=== PATIENT | female | born 2000 | race Caucasian/White ===

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

== ENCOUNTER 2018-01-31 13:20 | Emergency (ER) | payer BC ==
[2018-01-31 13:30] VITALS: BP 117/69
--- NOTE | 2018-01-31 14:05 | RAD ---
INDICATION: Right third digit injury COMPARISON: None TECHNIQUE: AP, lateral, and oblique views were obtained. FINDINGS: The bony structures, joint spaces, and soft tissues are normal for age. IMPRESSION: NEGATIVE EXAMINATION.
--- NOTE | 2018-02-04 07:16 | UC ---
Rodriguez Valdovinos Nikita, scribed for John Hagen MD on 01/31/18 at 1337 . Upper Extremity HPI - HPI Summary HPI Summary: This patient is a 17 year old F presenting to [facility] with a chief complaint of R middle finger pain since earlier this morning s/p closing a car door on her finger. The CC is described as throbbing. The patient rates the pain 4/10 in severity. Symptoms aggravated by nothing. Symptoms alleviated by nothing. - History of Current Complaint Chief Complaint: UCUpperExtremity Stated Complaint: FINGER INJURY Time Seen by Provider: 01/31/18 13:30 Hx Obtained From: Patient Hx Last Menstrual Period: 01/17/18 Onset/Duration: Sudden Onset, Lasting Hours, Still Present Severity Initially: Mild Severity Currently: Mild Pain Intensity: 4 Pain Scale Used: 0-10 Numeric Location Of Pain: Is Discrete @ - R middle finger Character: Throbbing Aggravating Factor(s): Nothing Alleviating Factor(s): Nothing - Allergies/Home Medications Allergies/Adverse Reactions: Allergies Allergy/AdvReac Type Severity Reaction Status Date / Time No Known Allergies Allergy Verified 01/31/18 13:26 PMH/Surg Hx/FS Hx/Imm Hx Endocrine History: Other Other Endocrine History: No DM Cardiovascular History: Other Other Cardiovascular History: heart murmur; No HTN Other History Of: Negative For: HIV, Hepatitis B, Hepatitis C - Surgical History Surgical History: None - Family History Known Family History: Positive: Cardiac Disease Negative: Hypertension - Social History Alcohol Use: None Substance Use Type: None Smoking Status (MU): Never Smoked Tobacco Have You Smoked in the Last Year: No - Immunization History Vaccination Up to Date: Yes Review of Systems Constitutional: Other - denies fever Musculoskeletal: Other: - R middle finger pain All Other Systems Reviewed And Are Negative: Yes Physical Exam - Summary Physical Exam Summary: VITAL SIGNS: Reviewed. GENERAL: ~Patient is a well-developed and nourished FEMALE who is lying comfortable in the stretcher. ~Patient is not in any acute respiratory distress. HEAD AND FACE: Normocephalic EYES: PERRLA, EOMI x 2. EARS: Hearing grossly intact. MOUTH: Oropharynx within normal limits. NECK: Supple, trachea is midline, no adenopathy, no JVD, no carotid bruit. CHEST: Symmetric, no tenderness at palpation LUNGS: Clear to auscultation bilaterally. No wheezing or crackles. CVS: Regular rate and rhythm, S1 and S2 present, no murmurs or gallops appreciated. ABDOMEN: Soft, non-tender. Bowel sounds are normal. No abdominal abnormal pulsations. EXTREMITIES: No edema, no cyanosis or clubbing. Swelling of R middle finger, decreased ROM, no deformity. NEURO: Alert and oriented x 3. No acute neurological deficits. Speech is normal and follows commands. SKIN: Dry and warm Triage Information Reviewed: Yes Vital Signs: Initial Vital Signs Temp 98.0 F 01/31/18 13:27 Pulse 78 01/31/18 13:27 Resp 18 01/31/18 13:27 BP 117/69 01/31/18 13:27 Pulse Ox 100 01/31/18 13:27 Vital Signs Reviewed: Yes Diagnostics - Radiology R middle finger XR Radiology Interpretation Completed By: Radiologist - NEGATIVE EXAMINATION. [facility] physician has reviewed this radiology report. Re-Evaluation - Re-Evaluation First Eval Re-Evaluation Time: 14:11 Comment: Discussed results and discharge plan with the patient. Upper Extremity Course/Dx - Course Course Of Treatment: This patient is a 17 year old F presenting to [facility] with a chief complaint of R middle finger pain since earlier this morning s/p closing a car door on her finger. R middle finger XR reveals NEGATIVE EXAMINATION. The pt is hemodynamically stable, alert and oriented x3. I discussed all the findings and test results with the patient. The patient will be discharged with instructions to follow up with their PCP. Patient was instructed to return to the urgent care or go to ER immediately if any of the symptoms return or worsens. Plan of care was discussed with the patient, and patient understands and agrees. All questions were answered to patient satisfaction. There were no further complaints or concerns. - Differential Dx/Diagnosis Provider Diagnoses: finger sprain Discharge - Sign-Out/Discharge Documenting (check all that apply): Discharge/Admit/Transfer - Discharge Plan Condition: Stable Disposition: HOME Patient Education Materials: Finger Sprain (ED) Forms: *School Release, *Work Release Referrals: Rupa Lopez DO [Primary Care Provider] - - Billing Disposition and Condition Condition: STABLE Disposition: HOME The documentation as recorded by the Rodriguez mora Nikita accurately reflects the service I personally performed and the decisions made by me, John Hagen MD.
== END 2018-01-31 14:39 | disposition home or self-care (01) ==
LOC: UCEAST 13:20
DX: S63.612A Unspecified sprain of right middle finger, initial encounter (principal); W23.0XXA Caught, crushed, jammed, or pinched between moving objects, initial encounter; Y93.9 Activity, unspecified; Y92.810 Car as the place of occurrence of the external cause; R01.1 Cardiac murmur, unspecified
CPT/HCPCS: 73140; 99211; G0463